=== PATIENT | male | born 1950 | race Caucasian/White ===

== ENCOUNTER → 2020-11-14 | Outpatient (CLI) | payer OTHER | LOC: EMI 10:38 | DX: M47.27 Other spondylosis with radiculopathy, lumbosacral region (principal); M48.07 Spinal stenosis, lumbosacral region; M43.8X4 Other specified deforming dorsopathies, thoracic region | CPT/HCPCS: 72148 ==

== ENCOUNTER → 2021-12-18 | Outpatient (CLI) | payer MEDICARE | LOC: CT 08:43 | DX: R63.4 Abnormal weight loss (principal); N20.0 Calculus of kidney; K44.9 Diaphragmatic hernia without obstruction or gangrene; K42.9 Umbilical hernia without obstruction or gangrene; Z98.1 Arthrodesis status; Z98.84 Bariatric surgery status | CPT/HCPCS: 36415; 82565; 84520; Q9967 ==